=== PATIENT | male | born 1995 | race African-American/Black ===

== ENCOUNTER 2021-01-18 02:03 | Emergency (ER) | payer OTHER ==
[2021-01-18 02:12] VITALS: BP 108/64; PULSE 66; TEMP 98.5; BMI 20.2
[2021-01-18 03:32] LABS: EOS % 10.4 % (0-4.5); HEMATOCRIT 41.6 % (35.4-49); HEMOGLOBIN 14.2 GM/dL (11.7-16.9); LYMPH % 32.1 % (8-40); MCH 32.6 pg (25.7-33.7); MCHC 34.2 g/dl (32.0-35.9); MEAN CELL VOLUME 95.1 fl (80-96); MEAN PLT VOLUME 9.5 fl (7.5-11.1); MONO % 8.8 % (3.8-10.2); NEUT % 47.7 % (42.8-82.8); PLATELET COUNT 213 10^3/uL (134-434); RBC 4.37 M/mm3 (4.00-5.60); RDW 13.2 % (11.9-15.9); WHITE BLOOD COUNT 8.7 K/mm3 (4.0-10.0)
[2021-01-18 03:55] LABS: CALCIUM 9.2 mg/dL (8.5-10.1)
[2021-01-18 03:56] LABS: ALBUMIN 4.2 g/dl (3.4-5.0); BLOOD UREA NITROGEN 11.1 mg/dL (7-18)
[2021-01-18 03:59] LABS: CREATININE 0.9 mg/dL (0.55-1.3)
[2021-01-18 04:01] LABS: BILIRUBIN,TOTAL 0.4 mg/dL (0.2-1); TOT PROT 7.6 g/dl (6.4-8.2)
== END 2021-01-18 04:17 | disposition home or self-care (01) ==
LOC: FER 02:03
DX: R55 Syncope and collapse (principal)
CPT/HCPCS: 36415; 80053; 85025; 93005; 99283-25